=== PATIENT | male | born 1985 | race African-American/Black ===

== ENCOUNTER 2018-05-24 20:32 | Emergency (ER) | payer SELFPAY ==
[~2018-05-24] VITALS: Ht 172.7 cm; Wt 69.0 kg
[~2018-05-24 20:32] MED LIST: AMOXICILLIN875 MG PO; BACTRIM DS1 TAB OR; NAPROSYN500 MG PO
[2018-05-24] MEDS ORDERED: CLEOCIN300 MG PO (22:47)
[2018-05-24] MEDS ORDERED: LORTAB 1010 MG PO (22:47)
[2018-05-24 23:15] VITALS: BP 128/72
== END 2018-05-24 23:15 | disposition home or self-care (01) | DRG 103 ==
LOC: ED 20:32
DX: R51 Headache (principal); K04.7 Periapical abscess without sinus; F17.200 Nicotine dependence, unspecified, uncomplicated

== ENCOUNTER 2018-06-06 07:07 | Emergency (ER) | payer SELFPAY ==
[~2018-06-06] VITALS: Ht 172.7 cm; Wt 66.0 kg
[~2018-06-06 07:07] MED LIST changes: +CLEOCIN300 MG PO; +LORTAB 1010 MG PO
[2018-06-06 07:39] VITALS: BP 152/88
== END 2018-06-06 07:43 | disposition home or self-care (01) | DRG 159 ==
LOC: ED 07:07
DX: K08.89 Other specified disorders of teeth and supporting structures (principal); K03.81 Cracked tooth

== ENCOUNTER 2021-05-22 09:04 | Emergency (ER) | payer SELFPAY ==
[~2021-05-22] VITALS: Ht 172.7 cm; Wt 7398.1 kg
[2021-05-22 11:31] VITALS: BP 129/69
== END 2021-05-22 11:39 | disposition home or self-care (01) | DRG 556 ==
LOC: ED 09:04
DX: M25.561 Pain in right knee (principal); M25.461 Effusion, right knee; F17.210 Nicotine dependence, cigarettes, uncomplicated

== ENCOUNTER 2021-08-11 20:31 | Emergency (ER) | payer SELFPAY ==
[~2021-08-11] VITALS: Ht 172.7 cm; Wt 63.0 kg
[2021-08-11 20:53] LABS: URINE BILIRUBIN - DIPSTICK NEGATIVE (NEGATIVE); URINE BLOOD DIPSTICK TRACE-INTACT (NEGATIVE); URINE COLOR YELLOW; URINE GLUCOSE - DIPSTICK NEGATIVE (NEGATIVE); URINE KETONE NEGATIVE (NEGATIVE); URINE LEUK ESTERASE NEGATIVE (NEGATIVE); URINE NITRITE - DIPSTICK NEGATIVE (Negative); URINE PH 5.5 (4.5-8.0); URINE PROTEIN - DIPSTICK NEGATIVE (NEG-TRACE); URINE SPECIFIC GRAVITY >=1.030; URINE UROBILINOGEN - DIPSTICK 0.2 E.U./dL (0.2)
[2021-08-11 21:43] VITALS: BP 147/78
== END 2021-08-11 21:43 | disposition home or self-care (01) | DRG 696 ==
LOC: ED 20:31
PROVIDERS: Family Medicine
DX: R30.0 Dysuria (principal); F17.200 Nicotine dependence, unspecified, uncomplicated; Z20.2 Contact with and (suspected) exposure to infections with a predominantly sexual mode of transmission

== ENCOUNTER 2024-07-09 23:03 | Emergency (ER) | payer SELFPAY ==
[~2024-07-09] VITALS: Ht 172.7 cm; Wt 65.0 kg
[2024-07-09 23:29] VITALS: BP 116/60
[2024-07-09 23:45] VITALS: BP 116/64
[2024-07-09] MEDS ORDERED: AMOXICILLIN & POT CLAVULANATE 875 MG/TAB PO ONE (23:50)
[2024-07-09] MEDS ORDERED: DEXAMETHASONE 2 MG/TAB TAB PO ONE (23:50)
[2024-07-10 00:01] VITALS: BP 116/54
[2024-07-10] MEDS ORDERED: LIDOCAINE21 MT (01:19)
[2024-07-10] MEDS ORDERED: AMOX/K CLAV875 M1 PO (01:19)
[2024-07-10 01:36] VITALS: BP 116/54
== END 2024-07-10 01:40 | disposition home or self-care (01) | DRG 153 ==
LOC: ED 23:03
DX: J02.9 Acute pharyngitis, unspecified (principal)

== ENCOUNTER 2024-09-13 08:41 | Emergency (ER) | payer SELFPAY ==
[~2024-09-13] VITALS: Ht 172.7 cm; Wt 65.0 kg
[~2024-09-13 08:41] MED LIST changes: +AMOX/K CLAV875 M1 PO; +LIDOCAINE21 MT
[2024-09-13 09:48] VITALS: BP 140/79
== END 2024-09-13 10:00 | disposition home or self-care (01) | DRG 103 ==
LOC: ED 08:41
DX: R51.9 Headache, unspecified (principal)